=== PATIENT | male | born 1960 | race Caucasian/White ===

== ENCOUNTER 2016-09-01 07:30 | Inpatient (IN) | payer OTHER ==
--- NOTE | 2016-08-17 21:09 | HP ---
HISTORY AND PHYSICAL: DATE OF ADMISSION/SURGERY: 09/01/16 DATE OF OFFICE VISIT: 08/17/16 SURGEON: Ophelia Arce MD PROCEDURE: Right total knee arthroplasty. HISTORY OF PRESENT ILLNESS: Travon is a 55-year-old gentleman with complaints of right knee pain secondary to advanced osteoarthritis. He has failed conservative management and has elected to proceed with a right total knee arthroplasty. The surgery is scheduled for 09/01/[address] Arce. PAST MEDICAL HISTORY: Hypertension. PAST SURGICAL HISTORY: Six left shoulder surgeries including a total shoulder, right knee arthroscopy, tonsillectomy, adenoidectomy, and surgery on his left ankle for a fracture. CURRENT MEDICATIONS: 1. Mobic. 2. Hydrochlorothiazide. 3. Chantix. ALLERGIES: No known drug allergies. FAMILY HISTORY: Stroke and cancer. SOCIAL HISTORY: He is a 55-year-old gentleman who does not work. He smokes less than half a pack a day for the last 30 years. He denies use of drugs or alcohol. REVIEW OF SYSTEMS: A complete 14-point review of systems was reviewed with the patient. All was negative or noncontributory. PHYSICAL EXAMINATION GENERAL: He is well developed, well nourished, in no acute distress. VITAL SIGNS: He stands 6 feet tall, weighs 275 pounds. His blood pressure is 115/80. His heart rate is 80. HEENT: Normocephalic, atraumatic. NECK: Supple. No palpable lymph nodes. Trachea is midline. PULMONARY: The lungs are clear to auscultation bilaterally. No wheezes, rhonchi, or rales. CARDIO: Regular rate and rhythm. Strong S1, S2. No murmurs, gallops, or rubs. No peripheral edema. ABDOMEN: Soft, nontender, nondistended. NEUROLOGICAL: He is alert and oriented x3. Cranial nerves II through XII are intact. MUSCULOSKELETAL: Right lower extremity: The skin is intact. He has tenderness over the medial and lateral joint line. He walks with a slightly antalgic type gait favoring his right leg. His lower extremity muscle group strengths are intact at 5/5 and he has intact sensation to pinprick and light touch over both legs and feet. ASSESSMENT AND PLAN: Travon is a 55-year-old gentleman with complaints of right knee pain. He has failed conservative management and has elected to proceed with a right total knee arthroplasty. The surgery is scheduled for with Dr. Arce. Dr. Arce discussed the risks and benefits of the surgery at today's visit and all of his questions were answered. Percocet, Colace, and Coumadin were sent to his pharmacy for postoperative pain control and DVT prophylaxis. He will follow up with Dr. Arce back in her clinic 10 to 14 days after the surgery. NIGHAT TILLMAN [id number]/[facility] #: [id number] KWADWO
--- NOTE | 2016-09-09 22:11 | HP ---
HISTORY AND PHYSICAL: DATE OF SURGERY: 09/16/16 SURGEON: Ophelia Arce MD PROCEDURE: Right total knee arthroplasty. CHIEF COMPLAINT: Right knee pain. HISTORY OF PRESENT ILLNESS: Mr. Crow is a 55-year-old gentleman with complaints of right kn ee pain. He has failed conservative management and has elected to proceed with a right total knee a rthroplasty. The surgery is scheduled for 09/16/[address] Arce. PAST MEDICAL HISTORY: Hypertension. PAST SURGICAL HISTORY: Six left shoulder surgeries including a total shoulder, right knee arthrosco py, tonsillectomy, adenoidectomy, ORIF of the left ankle and right rotator cuff repair and decompres harriett. CURRENT MEDICATIONS: 1. Hydrochlorothiazide. 2. Chantix. ALLERGIES: No known drug allergies. FAMILY HISTORY: Stroke and cancer. SOCIAL HISTORY: This is a 55-year-old gentleman. He does not work. He smokes less than half a pac k a day for the last 30 years. He denies use of drugs or alcohol. REVIEW OF SYSTEMS: A complete 14-point review of systems was reviewed with the patient, it is all n egative or noncontributory. PHYSICAL EXAMINATION GENERAL: He is well-developed, well nourished, he is in no acute distress. VITAL SIGNS: He stands 5 feet 8 inches tall, weight 277 pounds, blood pressure is 120/74, his heart rate is 98. HEENT: Normocephalic, atraumatic. NECK: Supple. No palpable lymph nodes. Trachea is midline. PULMONARY: Lungs are clear to auscultation bilaterally. CARDIO: Regular rate and rhythm. Strong S1 and S2. ABDOMEN: Soft, nontender, nondistended. MUSCULOSKELETAL: Right lower extremity: The skin is intact. He has tenderness over the medial and lateral joint line. He walks with an antalgic type gait favoring his right leg. His lower extremi ty muscle group strengths are intact at 5/5. He has 2+ dorsalis pedis pulses with intact sensation. NEUROLOGIC: He is alert and oriented x3. Cranial nerves II through XII are intact. ASSESSMENT AND PLAN: Mr. Crow is a 55-year-old gentleman with complaints of right knee mercedes n. He has failed conservative management and has elected to proceed with the right total knee arthr oplasty. The surgery is scheduled for 09/16/[address] Arce discussed the risks and b enefits of the surgery at today's visit and all his questions were answered. He has a prescription for Coumadin, Percocet, and Colace at his house for postoperative DVT prophylaxis and pain medicatio ns. He will follow with Dr. Arce in 10 to 14 days after the surgery. NIGHAT TILLMAN [id number]/[facility] #: [id number]
[2016-09-16] MEDS ORDERED: Buffered Lidocaine 1% SYRIN* 3 ML/SYR SYRINGE INTRADERM ONE (06:00)
[2016-09-16] MEDS ORDERED: ceFAZolin 2 GM PREMIX(*) 2 GM/50 ML BAG IVPB ONE (11:42)
[2016-09-16] MEDS ORDERED: Bupivacaine 0.5% SDV PF* 30 ML VIAL ONE (13:51)
[2016-09-16] MEDS ORDERED: Midazolam* 1 MG/ML 5 ML VIAL (5 MG) ONE (13:52)
[2016-09-16] MEDS ORDERED: Morphine PF AMP (0.5MG/ML)* 5 MG/10 ML AMP ONE (13:52)
[2016-09-16] MEDS ORDERED: Famotidine IV* 10 MG/ML 2 ML (20 mg) ONE (13:52)
[2016-09-16] MEDS ORDERED: Lidocaine 2% PF* 5 ML VIAL ONE (13:52)
[2016-09-16] MEDS ORDERED: Dexamethasone IV* 4 MG/ML 1 ML (4 MG) ONE (13:52)
[2016-09-16] MEDS ORDERED: fentaNYL* 50 MCG/ML 2 ML VIAL (100 MCG VIAL) ONE (13:52)
[2016-09-16] MEDS ORDERED: Midazolam* 1 MG/ML 2 ML VIAL (2 MG) ONE (14:37)
[2016-09-16] MEDS ORDERED: Dexmedetomidine* 200 MCG/2 ML 2 ML VIAL ONE (14:40)
[2016-09-16] MEDS ORDERED: diPHENhydraMINE IV* 50 MG/ML 1 ml VIAL (BENADRYL) ONE (14:41)
[2016-09-16] MEDS ORDERED: Hetastarch in NS* 500 ML IV ONE (14:56)
[2016-09-16] MEDS ORDERED: fentaNYL* 50 MCG/ML 2 ML VIAL (100 MCG VIAL) IV PRN (16:13)
[2016-09-16] MEDS ORDERED: DiMENhydriNATE IV* 50 MG/ML VIAL IV PUSH PRN (16:13)
[2016-09-16] MEDS ORDERED: HYDROmorphone* 1 MG/ML 1 ML SYR IV PRN (16:13)
[2016-09-16] MEDS ORDERED: Ondansetron INJ* 2 MG/ML VIAL IV PRN ×2 (16:13→16:15)
[2016-09-16] MEDS ORDERED: Acetaminophen TAB* 325 MG PO PRN (16:13)
[2016-09-16] MEDS ORDERED: Nalbuphine* 20 MG/ML 1 ML VIAL IV PRN ×2 (16:15)
[2016-09-16] MEDS ORDERED: diPHENhydraMINE IV* 50 MG/ML 1 ml VIAL (BENADRYL) IV PRN (16:15)
[2016-09-16] MEDS ORDERED: Naloxone* 0.4 MG/ML 1 ML VIAL IV PRN ×2 (16:15→21:03)
[2016-09-16] MEDS ORDERED: PROCHLORPERAZINE INJ 5 MG/ML 2 ML VIAL IV PRN (16:15)
[2016-09-16] MEDS ORDERED: HYDROcodone/ACETAMIN 5-325 MG* 1 TAB PO PRN (16:15)
[2016-09-16] MEDS ORDERED: Scopolomine PATCH Remove* 1 NOTE MISC PATCH OFF PRN (16:15)
[2016-09-16] MEDS ORDERED: Scopolamine 1.5 mg* PATCH TRANSDERM PRN (16:15)
[2016-09-16] MEDS ORDERED: Ketorolac INJ* 30 MG/ML 1 ML VIAL ONE (17:06)
[2016-09-16] MEDS ORDERED: Polyethylene Glycol 3350* 17 GM PACKET PO PRN (17:15)
[2016-09-16] MEDS ORDERED: LACTULOSE* 30 ML UDC PO PRN (17:15)
[2016-09-16] MEDS ORDERED: Bisacodyl SUPP* 10 MG SUPP PR PRN (17:15)
--- NOTE | 2016-09-16 17:58 | RAD ---
Indication: Right total knee replacement. 2 views of the right knee demonstrates bipolar right knee arthroplasty in satisfactory position. No loosening is noted. IMPRESSION: Right knee bipolar arthroplasty in satisfactory position.
[2016-09-16] MEDS ORDERED: ceFAZolin 1 GM in Dextrose (*) 1 GM/50 ML BAG IVPB SCH ×2 (18:00→22:00)
[2016-09-16] MEDS ORDERED: ceFAZolin 1 GM in Dextrose (*) 1 GM/50 ML BAG IVPB ONE (19:56)
[2016-09-16] MEDS ORDERED: Warfarin TAB(*) 10 MG PO ONE (21:00)
[2016-09-16] MEDS: Acetaminophen TAB* 325 MG PO SCH (21:33)
[2016-09-16] MEDS: Docusate CAP* 100 MG PO SCH (21:33)
[2016-09-16] MEDS: Magnesium Hydroxide LIQ* 30 ML UDC PO SCH (21:34)
[2016-09-16] MEDS ORDERED: Nicotine Inhaler* 10 MG AMP Q2H PRN CRAVING INH (22:00)
[2016-09-16] MEDS ORDERED: Mouth Piece, Nicotine* 1 EACH CARTRIDGE INH ONE (22:00)
[2016-09-17] MEDS: HYDROcodone/ACETAMIN 5-325 MG* 1 TAB PO PRN ×2 (01:10→04:12)
[2016-09-17] MEDS: Acetaminophen TAB* 325 MG PO SCH ×2 (01:56→05:10)
[2016-09-17] MEDS: ceFAZolin 1 GM in Dextrose (*) 1 GM/50 ML BAG IVPB SCH ×3 (04:10→20:27)
[2016-09-17] MEDS ORDERED: oxyCODONE/Acetamin 5/325 MG* TAB PO PRN (06:30)
[2016-09-17] MEDS ORDERED: diPHENhydraMINE IV* 50 MG/ML 1 ml VIAL (BENADRYL) IV PRN (06:30)
[2016-09-17] MEDS ORDERED: Ondansetron INJ* 2 MG/ML VIAL IV PRN (06:30)
[2016-09-17] MEDS ORDERED: Acetaminophen TAB* 325 MG PO PRN (06:30)
[2016-09-17] MEDS ORDERED: Ondansetron TAB* 4 MG PO PRN (06:30)
[2016-09-17] MEDS ORDERED: Morphine INJ* 10 MG/ML 1 ML SYRINGE IV PRN (06:30)
[2016-09-17] MEDS ORDERED: oxyCODONE TAB* 5 MG TAB PO PRN (06:30)
[2016-09-17 07:33] LABS: Hematocrit 38 % (42-52); Hemoglobin 12.5 g/dl (14.0-18.0)
[2016-09-17 07:51] LABS: BUN/Creatinine Ratio 14.1 (8-20); Calcium 8.3 mg/dL (8.6-10.3); EGFR African American 133.9 (>60); EGFR Non-African American 104.1 (>60)
--- NOTE | 2016-09-17 07:56 | OP ---
OPERATIVE NOTE: DATE OF OPERATION: 09/16/16 DATE OF : 64 SURGEON: Attending Surgeon: Ophelia Arce MD CURB BUILDER: NIGHAT Amaral ANESTHESIOLOGIST: Michelle Gerber MD ANESTHESIA: Spinal with adductor nerve block. PRE-OP DIAGNOSIS: Severe end-stage degenerative osteoarthritis of the right knee joint. POST-OP DIAGNOSIS: Severe end-stage degenerative osteoarthritis of the right knee joint. OPERATIVE PROCEDURE: Right total knee arthroplasty. TOURNIQUET TIME: 54 minutes. ESTIMATED BLOOD LOSS: 350 cc. COMPLICATIONS: None. SPECIMEN: Bone and cartilage from the right knee joint, sent to pathology. HARDWARE USED: This is a cemented [employer], total knee hardware. For the femur, an Oxinium right size 6 posterior stabilized femur. For the tibia, a right size 5 tibial base plate. For the insert, an 11 mm posterior stabilized articular insert size 5/6. For the patella, a 35 mm 3-peg al l-poly patella. BRIEF HISTORY/INDICATIONS: Mr. Crow is a 55-year-old gentleman with years of increasingly s evere knee pain. He failed conservative treatment with antiinflammatories, pain medications, intraa rticular injections, physical therapy, and arthroscopy. He continued to have severe pain. Radiogra phs showed advanced arthritis, which is tricompartmental. Due to continued pain and decreased quali ty of life, the patient elected to have right total knee arthroplasty. Informed consent was obtained from the patient. He understood the risks of the procedure included b ut were not limited to bleeding, infection, damage to the nearby structures, continued pain, need fo r further surgery, intraoperative fracture, nerve palsy, hardware failure or loosening, knee stiffne ss or loss of motion, stroke, heart attack, blood clot, and . He wished to proceed. INTRAOPERATIVE FINDINGS: Intraoperatively, the patient was noted to have advanced loss of cartilage along the medial, lateral, and patellofemoral compartments. He had noted some lateral femoral cond ylar hypoplasia. DESCRIPTION OF PROCEDURE: Mr. Crow was identified in the preanesthesia unit. His right low er extremity was marked as the correct operative site. Informed consent was signed and placed in the chart. The patient was taken to the operating room and placed under spinal anesthesia with an addu ctor nerve block. Tourniquet was placed on the right thigh. Christianson catheter was placed. Right lower extremity was prepped and draped in the usual sterile fashion. Preop time-out was made once again to correctly identify the patient's side and site. Appropriate perioperative antibiotics were given within 1 hour of incision. Tourniquet was inflated. A 14 cm midline line incision was made with a 10 blade. This was carried d own to the extensor mechanism. A new 10 blade was used to make a standard medial peripatellar arthr otomy. The patella was subluxed laterally. Electrocautery was used to subperiosteally elevate soft tissue up to superomedial tibia to the sagittal plane. A large amount of osteophyte was carefully r emoved. The knee was flexed up. The anterior horn of the lateral meniscus and ACL was sharply relea sed. A drill was used to enter the distal femur. The distal femoral intramedullary cutting guide w as pinned on the distal femur. Lateral femoral condylar hypoplasia was noted and accounted for. Os cillating saw was used to make the appropriate distal femoral cut. Next, the external rotation guid e was pinned on the distal femur. The distal femur was sized to a size 6. Size 6 multi-cutting jig placed on the distal femur. Oscillating saw was used to make the appropriate chamfer cuts. All venessa ny fragments were carefully removed. The PCL was completely released. The tibia was subluxed anteriorly. Extramedullary tibial cutting g uide was pinned on the proximal tibia. Oscillating saw was used to make proximal tibial cut perpend icular to the mechanical axis of the tibia. The bone was carefully removed. The knee was brought o ut into full extension. The spacer block fit nicely with good medial and lateral ligamentous balanc ing. Flexion and extension gaps were well balanced. The knee was flexed up. Lamina software technician was pl aced both medially and laterally. Any remaining meniscus was carefully removed with electrocautery. Posterior osteophytes were removed using a curved osteotome and curette. Tibial tray and drop jacky were placed to once again confirm correct tibial cut. This was confirmed. A trial of right size 6 femoral component was impacted onto the distal femur. The box for the poste rior stabilized implant was prepared using a reamer and box cut osteotome. A trial size 5 tibia and 9 mm insert was placed. Knee was taken through a range of motion. There was full extension on 125 degrees of flexion with good patellofemoral tracking. The patella was everted. The 9 mm of patellar bone and cartilage was carefully removed using an osc illating saw. The patella was sized to a size 35. The 3-peg holes were drilled through the size 35 guide. A 35 trial patella was placed and the knee was taken through a range of motion. There was satisfactory patellofemoral tracking. All trials were carefully removed. The tibia was subluxed an teriorly and sized to a size 5. Proximal tibia was prepared using a size 5 keel punch. All bony cu t surfaces were copiously irrigated with sterile saline and dried. The final implants were cemented into place starting with the tibia followed by the femur and last the patella. An 11-mm insert tri al was placed while the knee was brought out to full extension. The cement was allowed to fully cur e. Tourniquet was turned down at 54 minutes. Once the cement had fully cured, the knee was copious ly irrigated with sterile saline. Any extra cement was carefully removed from around the implants. Electrocautery was used to obtain meticulous hemostasis. Final insert chosen was a 11 mm posterior stabilized articular insert. This was locked into positio n on the tibial tray. Stability of the insert was checked and rechecked and noted to be stable. The knee was copiously irrigated with sterile saline. The extensor mechanism was closed over a medi um Hemovac drain using interrupted #1 Vicryl. The rest of the incision was closed in a layered fash ion using 0 and 2-0 Vicryl's. The skin was closed using running 3-0 nylon suture. Sterile Xeroform , 4x4s, and Webril were used to cover the incision. Donovan wrap and cold pack were placed over this. T he patient's anesthesia was reversed without difficulty. He was taken to the PACU in stable conditi on. Intended weightbearing will be weightbearing as tolerated. Intended DVT prophylaxis will be Cou madin with a Lovenox bridge. [id number]/[facility] #: [id number]
[2016-09-17] MEDS: Enoxaparin(*) 40 MG/0.4 ML SYR SUBCUT SCH (08:01)
[2016-09-17] MEDS: Magnesium Hydroxide LIQ* 30 ML UDC PO SCH ×2 (08:01→20:27)
[2016-09-17] MEDS: Docusate CAP* 100 MG PO SCH ×2 (08:02→20:27)
[2016-09-17] MEDS: oxyCODONE/Acetamin 5/325 MG* TAB PO PRN ×4 (08:02→22:08)
[2016-09-17] MEDS: Hydrochlorothiazide TAB* 25 MG PO SCH (08:03)
--- NOTE | 2016-09-17 09:56 | PN ---
Progress Note - Progress Note SOAP: Subjective: Pt. is doing well, pain controlled. Objective: RLE - drain removed, tip intact, 250 cc ss drainage. distally nvi. +df/pf, full sens lt, 2+ dp pulse. Vital Signs: Temp Pulse Resp BP Pulse Ox 98.1 F 84 18 121/66 98 09/17/16 07:42 09/17/16 07:42 09/17/16 08:02 09/17/16 07:42 09/17/16 07:42 Laboratory Results - last 24 hr 09/16/16 09/17/16 09/17/16 12:10 07:19 07:19 Hgb 12.5 L Hct 38 L INR (Anticoag Therapy) 1.09 Sodium Potassium Chloride Carbon Dioxide Anion Gap BUN Creatinine Est GFR ( Amer) Est GFR (Non-Af Amer) BUN/Creatinine Ratio Glucose Calcium Blood Type O Positive Antibody Screen Negative 09/17/16 07:19 Hgb Hct INR (Anticoag Therapy) Sodium 133 Potassium 4.0 Chloride 100 L Carbon Dioxide 29 Anion Gap 4 BUN 11 Creatinine 0.78 Est GFR ( Amer) 133.9 Est GFR (Non-Af Amer) 104.1 BUN/Creatinine Ratio 14.1 Glucose 130 H Calcium 8.3 L Blood Type Antibody Screen Assessment: 55 yo M pod 1 s/p RTKA Plan: xrays look good wbat pt/ot 8 mg coumadin tonight with lovenox bridge plan d/c to home tomorrow
[2016-09-17] MEDS ORDERED: Warfarin TAB(*) 6 MG PO ONE (17:30)
[2016-09-18] MEDS: oxyCODONE/Acetamin 5/325 MG* TAB PO PRN ×3 (03:15→11:28)
[2016-09-18 07:04] LABS: Hematocrit 33 % (42-52); Hemoglobin 11.1 g/dl (14.0-18.0)
[2016-09-18] MEDS: Docusate CAP* 100 MG PO SCH (07:29)
[2016-09-18] MEDS: Hydrochlorothiazide TAB* 25 MG PO SCH (07:29)
[2016-09-18] MEDS: Enoxaparin(*) 40 MG/0.4 ML SYR SUBCUT SCH (07:30)
[2016-09-18] MEDS: Magnesium Hydroxide LIQ* 30 ML UDC PO SCH (08:36)
[2016-09-18 08:52] VITALS: BP 114/68
--- NOTE | 2016-09-18 11:13 | PN ---
Progress Note - Progress Note SOAP: Subjective: [55 y/o M s/p R TKA 09/[address] Arce. Patient reports feeling well, VSS over night, eager for DC, working with PT well. ] Objective: General- well appearing, NAD sitting comfortably MSK- Incision C/D/I, + DF/ PF, PT pulses 2+ b/l, sensation grossly intact. Vital Signs Temp 98.1 F 09/18/16 08:44 Pulse 96 09/18/16 08:44 Resp 18 09/18/16 09:29 BP 114/68 09/18/16 08:44 Pulse Ox 97 09/18/16 08:44 Intake & Output 09/17/16 09/18/16 09/18/16 18:59 06:59 18:59 Intake Total 810 500 Output Total 575 475 Balance 235 25 Intake: Oral 810 500 Output: Urine 575 475 Other: Estimated Void Medium Laboratory Results - last 24 hr 09/18/16 09/18/16 06:43 06:43 Hgb 11.1 L Hct 33 L INR (Anticoag Therapy) 1.19 H Assessment: 55 y/o M s/p R TKA 09/[address] Arce. Plan: - DVT prophylaxis- ASA 325mg BID - Continue PT/ OT - Follow up with Dr. Arce within 2 weeks -
--- NOTE | 2016-09-19 03:52 | DS ---
DISCHARGE SUMMARY: DATE OF ADMISSION: 09/16/16 DATE OF DISCHARGE: 09/18/16 CHIEF COMPLAINT: 1. Right knee osteoarthritis. 2. Hypertension. DISCHARGE DIAGNOSES: 1. Status post right total knee arthroplasty. 2. Hypertension. PROCEDURE: Right total knee arthroplasty. CONSULTATIONS: 1. Physical Therapy. 2. Occupational Therapy. BRIEF HISTORY: Mr. Mendoza is a very pleasant 55-year-old gentleman with severe end-stage degenerative osteoarthritis of the right knee who failed conservative treatment and elected to undergo a right total knee arthroplasty by Dr. Ophelia Arce on 09/16/16. HOSPITAL COURSE: Mr. Mendoza was admitted to [facility] on 12/26 where he underwent an uncomplicated right total knee arthroplasty. Postoperatively, he recovered on the surgical short stay unit. On post- operative day 1, his Christianson was removed. He was voiding on his own without difficulty. He was advanced to regular diet and his pain was controlled with p.o. Percocet. He was restarted on his home medications. His labs and vital signs remained stable. He was able to weight bear as tolerated on the right lower extremity. He was working well with physical therapy. His DVT prophylaxis was managed with Lovenox in house and fully managed with aspirin 325 mg p.o. b.i.d. postoperatively for 1 month. By postoperative day 2, he was orthopedically and medically stable for discharge to go home with home services. PHYSICAL EXAMINATION: General: Well-appearing, no acute distress, alert and oriented, sitting in bed comfortably. Vital Signs: On date of discharge, temperature 98.1, pulse 96, respirations 18, blood pressure 114/68, and oxygen saturation on room air 97%. Examination of the right lower extremity shows that the incision is clean, dry and intact with no drainage on the gauze and was redressed without difficulty. Positive dorsiflexion and plantar flexion bilaterally. Posterior tibial pulses 2+ bilaterally. Sensation is grossly intact. Minimal edema in bilateral lower extremities. LABORATORY RESULTS: On the day of discharge, hemoglobin and hematocrit of 11.1 and 33, INR of 1.19. RADIOGRAPH: Postoperative knee x-ray of the right extremity showed right bipolar arthroplasty in satisfactory position. DISCHARGE MEDICATIONS: 1. Aspirin 325 mg p.o. b.i.d. 2. Tylenol 650 mg p.o. q.4 hours p.r.n. 3. Colace 100 mg p.o. b.i.d. 4. Microzide 12.5 mg p.o. daily. 5. Percocet 5/325 mg 1 to 2 tablets q.4 hours p.r.n. knee pain. 6. Meloxicam 50 mg p.o. daily. 7. Chantix 1 mg p.o. daily. CONDITION ON DISCHARGE: Stable. DISCHARGE INSTRUCTIONS: Mr. Mendoza is a very pleasant 55-year-old gentleman, postoperative day 2 status post right total knee arthroplasty, which was uncomplicated. He is orthopedically and medically stable for discharge to go home with home services. His labs and vital signs are stable. He will restart his home medications. He will take aspirin 325 mg p.o. b.i.d. for DVT prophylaxis. He will have home visiting nurse services for wound check and home physical therapy approximately 2 times a week. He will take Percocet as needed for pain control. He will continue with Colace as needed for constipation. He will follow up with Dr. Arce in approximately 10 to 14 days for incision check and suture removal. He was instructed to go immediately to the ER should he develop chest pain or shortness of breath. Should he develop fever, increasing pain, or increasing redness, he is to call the office immediately. NIGHAT COLEMAN [id number]/[facility] #: [id number] KWADWO
== END 2016-09-18 12:30 | disposition home health service (06) | DRG 302 ==
LOC: AA 09-16 11:38 → SSU 09-16 20:20
PROVIDERS: ADMIT Orthopaedic Surgery Adult Reconstructive Orthopaedic Surgery; ATTEND Orthopaedic Surgery Adult Reconstructive Orthopaedic Surgery
PROC: 0SRC0J9 Replacement of Right Knee Joint with Synthetic Substitute, Cemented, Open Approach (ICD-10-PCS; principal; 2016-09-16 14:00)
DX: M17.11 Unilateral primary osteoarthritis, right knee (principal); E66.01 Morbid (severe) obesity due to excess calories; I10 Essential (primary) hypertension; Z79.82 Long term (current) use of aspirin; Z82.3 Family history of stroke; Z80.9 Family history of malignant neoplasm, unspecified; F17.200 Nicotine dependence, unspecified, uncomplicated; Q72.891 Other reduction defects of right lower limb; Z68.39 Body mass index [BMI] 39.0-39.9, adult
CPT/HCPCS: 36415; 80048; 85014; 85018; 85610; 86850; 86900; 86901; 94760; A9270-GY; C1776; J0690; J1100; J1200; J1650; J1885; J2250; J3010

== ENCOUNTER 2016-11-08 06:01 | Day surgery (SDC) | payer OTHER ==
[~2016-11-08 06:01] MED LIST: Buffered Lidocaine 1% SYRIN* 5 ML/SYR SYRINGE INTRADERM ONE
[2016-11-08] MEDS ORDERED: Buffered Lidocaine 1% SYRIN* 5 ML/SYR SYRINGE ONE (06:04)
[2016-11-08] MEDS ORDERED: Famotidine IV* 10 MG/ML 2 ML (20 mg) ONE (07:16)
[2016-11-08] MEDS ORDERED: Midazolam* 1 MG/ML 2 ML VIAL (2 MG) ONE (07:16)
[2016-11-08] MEDS ORDERED: diPHENhydraMINE IV* 50 MG/ML 1 ml VIAL (BENADRYL) ONE (07:35)
[2016-11-08] MEDS ORDERED: Propofol* 10 MG/ML 20 ML BTL IV PUSH ONE (07:35)
[2016-11-08] MEDS ORDERED: Lidocaine 2% PF * 5 ML VIAL ONE (07:35)
[2016-11-08] MEDS ORDERED: Ketorolac INJ* 30 MG/ML 1 ML VIAL ONE (07:35)
[2016-11-08] MEDS ORDERED: KETAMINE HCL* 50 MG/ML 10 ML VIAL ONE (07:38)
[2016-11-08] MEDS ORDERED: fentaNYL* 50 MCG/ML 2 ML VIAL (100 MCG VIAL) ONE (07:38)
[2016-11-08] MEDS ORDERED: DiMENhydriNATE IV* 50 MG/ML VIAL IV PUSH PRN (07:51)
[2016-11-08] MEDS ORDERED: Ondansetron INJ* 2 MG/ML VIAL IV PRN (07:51)
[2016-11-08] MEDS ORDERED: HYDROmorphone* 1 MG/ML 1 ML SYR IV PRN (07:51)
[2016-11-08] MEDS ORDERED: Acetaminophen TAB* 325 MG PO PRN (07:51)
[2016-11-08 08:53] VITALS: BP 144/94
--- NOTE | 2016-11-08 13:45 | RAD ---
INDICATION: Dislocated knee prosthesis-relocation COMPARISON: September 16, 2016 FINDINGS: 28 seconds of fluoroscopy were provided for the orthopedics department. Fluoroscopic spot imaging of the right knee were obtained for operative control and show that the knee articulates normally. No acute bony change is noted . CPT II Codes: 6045F (fluoro time doc)
--- NOTE | 2016-11-09 02:20 | OP ---
OPERATIVE REPORT: DATE OF OPERATION: 11/08/16 DATE OF : 64 SURGEON: Ophelia Arce MD ANESTHESIOLOGIST: Dr. Gerber. ANESTHESIA: Low MAC. PRE-OP DIAGNOSIS: Painful stiff right total knee arthroplasty. POST-OP DIAGNOSIS: Painful stiff right total knee arthroplasty. OPERATIVE PROCEDURE: Manipulation under anesthesia of the right total knee arthroplasty. INDICATIONS: Mr. Mendoza is 56-year-old gentleman, who had right total knee arthroplasty approximately 6 weeks ago. He had a delay in obtaining physical therapy. He has been developed stiffness and difficulty bending the knee. Decision was made to schedule him for manipulation under anesthesia of the right total knee arthroplasty with aggressive formal physical therapy immediately afterwards. Informed consent was obtained from the patient. He understood the risks of procedure included, but were not limited to, bleeding, damage to nearby structure, periprosthetic fracture, continued knee stiffness and pain, stroke, heart attack, blood clot, , and anesthesia risk. He wished to proceed. COMPLICATIONS: None. ESTIMATED BLOOD LOSS: None. HARDWARE: None. SPECIMEN: None. INTRAOPERATIVE FINDINGS: Intraoperatively, the patient's preop range of motion was 5 to 90 degrees, postop range of motion was full, extension to 130 degrees of flexion. DESCRIPTION OF PROCEDURE: Mr. Mendoza was identified in the preanesthesia unit. His right lower extremity was marked as the correct operative side. Informed consent was signed and placed in the chart. The patient was taken to the operating room and placed under low MAC anesthesia. Preop time-out was made to correctly identify the patient's side and site. Gentle manipulation of the knee included extending the knee and flexing the knee with gentle pressure. Audible and palpable scar tissue was broken up. Final range of motion with full extension to 130 degrees of knee flexion with good patellofemoral tracking. There was no erythema or significant effusion at the knee. C-arm views, both AP and lateral, confirmed no periprosthetic fracture. The patient's anesthesia was reversed without difficulty and he was taken to the PACU in stable condition. Intended weightbearing will be weightbearing as tolerated. The patient will have physical therapy for the next 3 days in a row. He will have appropriate pain medication and aspirin for DVT prophylaxis. [id number]/[facility] #: [id number] [facility]
== END 2016-11-08 09:12 | disposition home or self-care (01) ==
LOC: OR 06:01
PROVIDERS: ATTEND Orthopaedic Surgery Adult Reconstructive Orthopaedic Surgery
DX: M24.661 Ankylosis, right knee (principal); Z96.651 Presence of right artificial knee joint; I10 Essential (primary) hypertension; F17.210 Nicotine dependence, cigarettes, uncomplicated; E66.9 Obesity, unspecified; Z68.41 Body mass index [BMI] 40.0-44.9, adult
CPT/HCPCS: 76000; J1200; J1885; J2250; J2704; J3010